=== PATIENT | male | born 1985 | race Caucasian/White ===

== ENCOUNTER 2020-04-15 15:03 | Emergency (ER) | payer OTHER, SELFPAY ==
[2020-04-15 15:45] VITALS: BP 170/105; PULSE 72; RESP 18; TEMP 36.9; O2SAT 100
--- NOTE | 2020-04-15 16:02 | ED.GENADULT ---
HPI - General Adult General Chief complaint: Ear Stated complaint: Lt earache Time Seen by Provider: 04/15/20 16:02 Source: patient Mode of arrival: ambulatory Limitations: no limitations History of Present Illness HPI narrative: 34-year-old male patient presents to the [facility] with complaints of left ear pain that started yesterday and has gotten worse today. Patient denies any fevers, body aches or chills. Patient states he has had a little bit of the stuffy and runny nose recently but denies any sore throat, coughing, chest pain or shortness of breath. Denies any abdominal pain, nausea, vomiting or diarrhea. Related Data Allergies Allergy/AdvReac Type Severity Reaction Status Date / Time No Known Allergies Allergy Mild Verified 06/22/09 13:03 Review of Systems Review of Systems: Narrative: CONSTITUTIONAL: Denies fever, chills, or sweats. EYES: Denies visual changes, redness, or discharge. ENT: Positive rhinorrhea, congestion, denies sore throat, positive left otalgia. CARDIOVASCULAR: Denies chest pain, palpitations, or edema. RESPIRATORY: Denies cough or dyspnea. GASTROINTESTINAL: Denies abdominal pain, nausea, vomiting, or diarrhea. GENITOURINARY: Denies dysuria or hematuria. SKIN: Denies rash or itching. MUSCULOSKELETAL: Denies back pain, joint pain, or myalgia. NEUROLOGIC: Denies headache, numbness, or weakness. PSYCHIATRIC: Denies anxiety or depression. PMFSH Family History Family History Mother Family history of thyroid disease Depression Hypertension Family history of elevated blood lipids Father Family history of mental disorder Depression Family history of gastrointestinal disorder Sibling Family history of mental disorder Social History Social History Gender identity (if verbalized by the patient): Male Comments At the time of my signature I agree with nursing past medical history, surgical, social, and family history. There is no relevant family history pertinent to the presenting complaint. Exam Narrative: Exam Narrative: GENERAL: Well-appearing, well-nourished, and in no acute distress. HEAD: Normocephalic, atraumatic. EYES: PERRLA and EOMI. ENT: Nares with erythema and edema noted bilaterally, patent, no rhinorrhea or epistaxis. Mucous membranes moist. Posterior pharynx with no erythema, tonsillar Yudith, exudates or lesions present. Patient does have a little bit of fluid and some bulging noted to the left ear but there is no erythema. Canals are clear of any foreign bodies. NECK: Supple. No lymphadenopathy CHEST: Clear to auscultation. No respiratory distress. HEART: Regular rate and rhythm. No murmur heard. Normal peripheral pulses. ABDOMEN: Soft, nontender, nondistended, normal active bowel sounds. EXTREMITIES: Normal range of motion. No edema. SKIN: Warm, dry, no rash. NEURO: No focal deficits. Alert and oriented x3. Course Vital Signs Vital signs: Vital Signs Temperature 36.9 C 04/15/20 15:45 Pulse Rate 72 04/15/20 15:45 Respiratory Rate 18 04/15/20 15:45 Blood Pressure 170/105 H 04/15/20 15:45 Pulse Oximetry 100 04/15/20 15:45 Temperature 36.9 C 04/15/20 15:45 Pulse Rate 72 04/15/20 15:45 Respiratory Rate 18 04/15/20 15:45 Blood Pressure 170/105 H 04/15/20 15:45 Pulse Oximetry 100 04/15/20 15:45 Vital signs reviewed The patient has been informed that they may have pre-hypertension or Hypertension based on a BP reading in the department. I recommend that the patient call the primary care provider listed on their discharge instructions or a physician of their choice this week to arrange follow up for further evaluation of possible pre-hypertension or Hypertension Medical Decision Making Differential Diagnosis Differential Diagnosis: Differential diagnosis: Otitis media, otitis externa, perforated TM, infection of the outer ear,
== END 2020-04-15 16:14 | disposition home or self-care (01) ==
PROVIDERS: Emergency Provider Nurse Practitioner Family
DX: H66.92 Otitis media, unspecified, left ear (principal); H73.892 Other specified disorders of tympanic membrane, left ear
CPT/HCPCS: 99213; G0463

== ENCOUNTER 2024-10-18 16:02 | Emergency (ER) | payer BC, SELFPAY ==
--- NOTE | 2024-10-18 16:04 | ED_ITS ---
HPI - Wound/Laceration General Stated Complaint: right index/middle finger cut Time Seen by Provider: 10/18/24 16:03 Source: patient Mode of arrival: ambulatory Limitations: no limitations History of Present Illness HPI narrative: Hernan is a 39-year-old male patient presenting to the clinic today with complaints of a cut to his right tip of index and right dorsal distal middle finger. He reports he was using a mandoline cutting a potato when the potatoes the slid and he cut his index and middle finger. Bleeding was controlled upon arrival. Tetanus shot is up-to-date within last 5 years. Related Data Home Medications ?Medication ?Instructions ?Recorded ?Confirmed ?Last Taken ?Type No Home Medications 10/18/24 Unknown History Allergies Allergy/AdvReac Type Severity Reaction Status Date / Time No Known Allergies Allergy Mild Verified 10/18/24 16:06 Review of Systems Review of Systems: Pertinent positives per HPI. Patient denies any fever, chills, rash, headache, visual changes, dizziness, cough, runny nose, sore throat, shortness of breath, chest pain, palpitations, nausea, vomiting, diarrhea, constipation, abdominal pain, or any urinary issues. [facility] Family History Family History Mother Family history of thyroid disease Depression Hypertension Family history of elevated blood lipids Father Family history of mental disorder Depression Family history of gastrointestinal disorder Sibling Family history of mental disorder Social History Social History Gender identity (if verbalized by the patient): Male Comments At the time of my signature, I reviewed and agree with the nursing past medical, surgical, social, and family history. There is no relevant family history pertinent to the patient complaint. Exam Narrative: General: Well-developed, well nourished, in no apparent distress Head: Normocephalic, atraumatic. Cardio: Regular rate and rhythm, s1 and s2 normal, no murmur appreciated. Resp: Clear to auscultation bilaterally, no rhonchi, rales, wheezing or rubs. Integumentary: [place], warm, and dry, 1 cm by 0.5 cm skin avulsion to the right 3rd dorsal distal finger, 0.25 x 0.5 cm skin avulsion to the distal tip of the right index finger Course Course Emergency Course: Portions of this record may have been created with voice recognition software. Level of Care: Express Care Visit Vital Signs Vital signs: Vital signs reviewed MDM - Wound/Laceration MDM Narrative Medical decision making narrative: At the time of visit patient is resting comfortably on the exam table. Patient appears to be nontoxic. Procedure: Wound cleansed and triple antibiotic ointment was placed over the wound. Telfa with Coban used to secure dressing Plan: Patient has skin avulsion to the right middle and right index finger. Wounds were cleansed with antiseptic wound wash and patted dry. Bleeding was controlled-triple antibiotic ointment and Telfa was applied and secured with Coban. Supportive measures were discussed with the patient and they voiced understanding discharge instructions and agrees to treatment plan. Return precautions reviewed Differential Diagnosis Differential diagnosis: Likely laceration, abrasion and avulsion of skin Discharge Plan Discharge Clinical Impression: Avulsion of skin of finger Patient Disposition: Home Condition: Stable Instructions: Antibiotic Form, Skin Avulsion (ED) Additional Instructions: Leave bandage on for 24 hours then may remove and apply band aide covering as ne eded. May apply triple antibiotic ointment to the wound twice daily x2 days Keep wound clean and dry Watch for signs and symptoms of infection- redness, streaking, swelling, purulent discharge, or increase in pain. Follow up with your PCP for suture removal or return to the Express care. Patient Language: [place] Prescriptions: No Action amoxicillin 500 mg tablet 1,000 mg PO Q8H 5 Days Qty: 30 0RF cetirizine [Zyrtec] 10 mg tablet 10 mg PO DAILY Qty: 30 0RF Follow-up/Referrals: PHYSICIAN NOT ON STAFF,NONSTAFF [Primary Care Provider] - Time of Disposition: 16:28 Quality NIHSS Nursing Documentation ED NIHSS nursing documentation: reviewed/agree
[2024-10-18 16:15] VITALS: BP 186/111; PULSE 129; RESP 16; TEMP 37.3; O2SAT 100
== END 2024-10-18 16:41 | disposition home or self-care (01) ==
PROVIDERS: Emergency Provider Nurse Practitioner Family
DX: S61.210A Laceration without foreign body of right index finger without damage to nail, initial encounter (principal); W26.8XXA Contact with other sharp object(s), not elsewhere classified, initial encounter
CPT/HCPCS: 99212; G0463